=== PATIENT | male | born 1955 | race Caucasian/White ===

== ENCOUNTER → 2017-12-01 | Outpatient (CLI) | payer OTHER ==
[~2017-12-01] MED LIST: HYDROmorphone 2 MG/ML VIAL IV PRN; IV RINGERS,LACTATED 1000ML 1,000 ML IV SCH; LIDOCAINE 1% PF 2 ML VIAL. ID PRN; LIDOCAINE 2% 100 MG/5 ML SYRINGE. ONE; MIDAZOLAM HCL/PF 2 MG/2 ML VIAL. ONE; MORPHINE SULFATE 2 MG/ML VIAL. IV PRN; ONDANSETRON PF 4 MG/2 ML VIAL. IV PRN; PROCHLORPERAZINE 10 MG/2 ML VIAL. IV PRN; PROPOFOL 60 ML IV ONE; fentaNYL PF VIAL 100 MCG/2 ML VIAL IV PRN; fentaNYL PF VIAL 100 MCG/2 ML VIAL ONE
--- NOTE | 2017-12-01 11:16 | RAD ---
MRI right brachial plexus without contrast HISTORY: Neck pain and right arm radiculopathy TECHNIQUE: Multiplanar, multi sequential noncontrast MR imaging was performed of the right brachial plexus. COMPARISON: None FINDINGS: There is motion degradation. Right brachial plexus is poorly visualized due to motion, no obvious mass in the expected region of the right brachial plexus. Evaluation of the cervical spine is also very limited due to motion. Edema of the left C7 and T1 pedicles and facet articulations is not excluded although may be artifactual. There is mild superior thoracic levoscoliosis. IMPRESSION: 1. Exam is very limited due to motion, no obvious mass in expected course of the right brachial plexus. Edema of the left C7 and T1 pedicles is not excluded although may be artifactual. Electronically signed by: Calin Dobson MD (12/01/2017 11:13 AM) [id number]
--- NOTE | 2017-12-01 11:20 | RAD ---
MRI Cervical Spine Without Contrast History: Neck pain with right arm radiculopathy Technique: Multiplanar, multi sequential noncontrast MR imaging was performed of the cervical spine. Comparison: None Findings: There is severe motion degradation. Cervical cord caliber is within normal limits without expansile signal change, otherwise cannot evaluate for cord signal abnormality. There is mild grade 1 anterior spondylolisthesis C3-C4. There is probable [id number] degenerative disc disease at C3-4, C4-5, C6-7 and to lesser degree at C5-C6. There is probable mild spondylosis at these levels. There is probable borderline narrowing of the central canal at C3-4, no significant cervical spinal stenosis identified. There is multilevel facet degenerative change. Neural foramina cannot be accurately characterized due to severe motion. There may be some edema of the left C7 and T1 pedicles and facet articulation although otherwise not accurately evaluated due to motion. Impression: 1. There is severe motion degradation. There is no significant cervical spinal stenosis. There is multilevel degenerative disc disease and spondylosis. There may be some edema of the left C7 and T1 pedicles and facet articulation although poorly characterized. Neural foramina cannot be adequately evaluated. Electronically signed by: Calin Dobson MD (12/01/2017 11:17 AM) [facility] [id number]
[2017-12-01 12:15] VITALS: BP 118/84
== END | disposition home or self-care (01) ==
LOC: MRI 09:35
PROVIDERS: ATTEND Physical Medicine & Rehabilitation
DX: M50.30 Other cervical disc degeneration, unspecified cervical region (principal); M47.892 Other spondylosis, cervical region
CPT/HCPCS: 71550; 72141; J2250; J2704; J3010